=== PATIENT | female | born 1930 | race Caucasian/White ===

== ENCOUNTER 2021-01-09 11:27 | Emergency (ER) | payer MEDICARE, BC ==
[~2021-01-09] VITALS: Ht 149.9 cm; Wt 51.8 kg
[2021-01-09] MEDS ORDERED: nitroGLYCERIN 0.4mg SUBLingual tab SL PRN (11:45)
[2021-01-09] MEDS ORDERED: aspirin 81mg tab.chew PO ONE (11:45)
--- NOTE | 2021-01-09 11:46 | NUR ---
PT HAS GIVEN PERMISSION FOR HER DAUGHTER LINDSAY BARR TO RECEIVE INFORMATION REGARDING PT'S STATUS. DAUGHTER'S CONTACT PHONE #: [phone], [phone]
[2021-01-09 12:08] LABS: BASOPHILS % (AUTO) 0.5 % (0-1); EOSINOPHILS # (AUTO) 0.1 X10'3 (0-0.9); HEMATOCRIT 40.9 % (35.0-45.0); HEMOGLOBIN 14.2 g/dl (12.0-16.0); LYMPHOCYTES # (AUTO) 2.3 X10'3 (1.1-4.8); LYMPHOCYTES % (AUTO) 32.1 % (21-51); MEAN CORPUSCULAR HGB CONC 34.9 g/dL (33.0-36.5); MEAN CORPUSCULAR VOLUME 88.8 FL (78-98); MEAN PLATELET VOLUME 7.6 FL (7.4-10.4); MONOCYTES # (AUTO) 0.5 X10'3 (0-0.9); MONOCYTES % (AUTO) 6.9 % (2-12); NEUTROPHILS # (AUTO) 4.2 X10'3 (1.8-7.7); NEUTROPHILS % (AUTO) 59.5 % (42-75); PLATELET COUNT 173 X10'3 (140-440); RED CELL DISTRIBUTION WIDTH 13.6 % (11.5-14.5); WHITE BLOOD COUNT 7.1 X10'3 (4.5-11.0)
[2021-01-09 12:23] LABS: ALANINE AMINOTRANSFERASE 19 U/L (12-78); ALBUMIN 3.7 G/DL (3.4-5.0); ALKALINE PHOSPHATASE 71 IU/L (46-116); ANION GAP 10 (8-16); ASPARTATE AMINO TRANSFERASE 16 U/L (10-37); BILIRUBIN,TOTAL 0.4 MG/DL (0.1-1.0); BLOOD UREA NITROGEN 23 MG/DL (7-18); BUN/CREATININE RATIO 27.4 (6.6-38.0); CALCIUM 8.9 MG/DL (8.5-10.1); CHLORIDE 107 MMOL/L (99-107); CREATININE 0.84 MG/DL (0.40-0.90); GLUCOSE 101 MG/DL (70-104); POTASSIUM 4.3 MMOL/L (3.5-5.1); SODIUM 145 MMOL/L (135-145); TOTAL CARBON DIOXIDE 28.3 MMOL/L (24-32); TOTAL PROTEIN 7.3 G/DL (6.4-8.2); eGFR 64 ML/MIN
[2021-01-09] MEDS ORDERED: ESZO3TAB44 PO (15:59)
[2021-01-09] MEDS ORDERED: magnesium hydroxide 30ml (MOM) UD suspension PO PRN (16:10)
[2021-01-09] MEDS ORDERED: ondansetron/PF 4mg/2ml inj IV PRN (16:10)
[2021-01-09] MEDS ORDERED: mag hydrox/Alum hydrox/simeth 30ml oral suspension PO PRN (16:10)
[2021-01-09] MEDS ORDERED: morphine 2 MG/ML inj. syringe IV PRN ×2 (16:10)
[2021-01-09] MEDS ORDERED: acetaminophen 325mg tablet PO PRN ×2 (16:10)
[2021-01-09 16:37] VITALS: BP 107/92
--- NOTE | 2021-01-09 18:06 | NUR ---
PT SEEN GETTING DRESSED IN ROOM, WHEN ASKED WHAT SHE WAS DOING, PT RESPONDED SHE IS LEAVING. SHE SAYS SHE DOESNT HAVE CP AND WILL COME BACK IF IT RETURNS. PAGE SENT TO DR PEDRAZA. AWAITING RESPONSE. PT REFUSED TO WAIT STATED HER DAUGHTER IS IN PARKING LOT. PT RAN INTO DR KANG AND HE WROTE DC PAPERWORK AND WENT OVER IT WITH PT.
[2021-01-09] MEDS ORDERED: docusate sod 100mg capsule PO SCH (20:00)
[2021-01-09] MEDS ORDERED: metoprolol tartrate 25mg tablet PO SCH (20:00)
[2021-01-10] MEDS ORDERED: nitroGLYCERIN 0.4mg/hour patch TD SCH (08:00)
[2021-01-10] MEDS ORDERED: aspirin 81mg, enteric-coated 1 TAB TABLET.DR PO SCH (08:00)
== END 2021-01-09 18:08 | disposition home or self-care (01) ==
LOC: ER 11:27 → ED HOLD 16:11 → UNDOADMIN 16:11 → UNDODISIN 18:07
DX: R07.89 Other chest pain (principal); Z88.8 Allergy status to other drugs, medicaments and biological substances
CPT/HCPCS: 36415; 71045; 80053; 83880; 84484; 85025; 93005; 99285; G0378